=== PATIENT | male | born 1975 | race Caucasian/White ===

== ENCOUNTER 2024-07-20 23:30 | Emergency (ER) | payer MEDICAID, SELFPAY ==
--- NOTE | 2024-07-20 | ECG_ITS ---
Test Reason : FALL Blood Pressure : */* mmHG Vent. Rate : 80 BPM Atrial Rate : 80 BPM P-R Int : 198 ms QRS Dur : 78 ms QT Int : 360 ms P-R-T Axes : 58 71 72 degrees QTcB Int : 415 ms Normal sinus rhythm Normal ECG No previous ECGs available Referred By: Generic ED Physician Electronically Signed By: CORBY MORENO MD
--- NOTE | ~2024-07-20 | CT_ITS ---
CLINICAL HISTORY: fall CT head without contrast Comparison: None Findings: No intra-axial mass, midline shift, hydrocephalus, or acute hemorrhage. No significant atrophy-like change or white matter disease. Fluid level and mucosal thickening is in the left maxillary sinus. Mastoid air cells are clear. The orbits are unremarkable. No skull fracture. IMPRESSION: 1. No acute intracranial findings. This document has been electronically signed by: Rico Chamberlain MD, PHD on 07/21/2024 01:37:38
--- NOTE | ~2024-07-20 | XR_ITS ---
CLINICAL HISTORY: fall, pain 3 views lumbar spine Comparison: None Findings: There is mild straightening of the normal lumbar lordosis. No acute fractures or dislocation. Degenerative changes are present with disc height loss, endplate sclerosis and facet arthropathy in the inferior lumbar spine. IMPRESSION: No acute findings. This document has been electronically signed by: Rico Chamberlain MD, PHD on 07/21/2024 04:38:54
--- NOTE | ~2024-07-20 | CT_ITS ---
CLINICAL HISTORY: fall CT cervical spine without contrast Comparison: None Findings: There is straightening of the normal cervical lordosis. Mild multilevel degenerative changes are present. No acute fractures or dislocations. Visualized intracranial contents are unremarkable. No cervical fluid collections or masses. No consolidation or effusion at the lung apices. IMPRESSION: No acute findings. This document has been electronically signed by: Rico Chamberlain MD, PHD on 07/21/2024 01:36:06
[2024-07-20 23:35] VITALS: BP 130/74; BP 154/32; PULSE 78; PULSE 80; RESP 14; TEMP 36.2; O2SAT 96; BMI 29.8
[2024-07-20 23:37] VITALS: BP 130/74; PULSE 78; RESP 14; TEMP 36.2; O2SAT 96
--- NOTE | 2024-07-21 02:52 | ED_ITS ---
HPI - Fall General Chief Complaint: Fall Stated Complaint: ETOH Time Seen by Provider: 07/21/24 02:50 Source: patient and EMS Mode of arrival: EMS Limitations: no limitations History of Present Illness ED Provider: Dr. Argelia Wise HPI Narrative: Patient comes to the emergency room complaining of lower back pain. Patient states that he had been drinking earlier today. Patient states that he drank alcohol earlier today. Patient remembers that he was taking a shower, fell inside of his tub. Patient unsure if he hit his head or not. Patient reports pain in the lower back. Patient had his cell phone with him and was able to call 911. EMS help him out of the bathtub. According to EMS, patient received 100 mcg of fentanyl intranasal. Patient states that he is not sure if he uses any blood thinners. Related Data Allergies Allergy/AdvReac Type Severity Reaction Status Date / Time amoxicillin Allergy Rash Verified 07/20/24 23:45 Review of Systems 2 Review of Systems: Constitutional : No Weight loss, No Fever, No Chills, No Night Sweats, No Fatigue, No Malaise ENT/Mouth : No Hearing loss, No Ear Pain, No Nasal Congestion, No Sinus Pain, No Hoarseness, No sore throat, No Rhinorrhea, No Swallowing Difficulty Eyes: No Eye Pain, No Swelling, No Redness, No Foreign Body, No Discharge, No Vision Changes Cardiovascular : No Chest Pain, No SOB, No Dyspnea on Exertion, No Orthopnea, No Edema, No Palpitations Respiratory : No Cough, No Sputum, No Wheezing, No Smoke Exposure, No Dyspnea Gastrointestinal : No Nausea, No Vomiting, No Diarrhea, No Constipation, No abdominal Pain, No Hematochezia, No Melena Genitourinary : no irregular bleeding, No Dysuria, No Urinary Frequency, No Hematuria, No Urinary Incontinence, No Urgency, No Flank Pain, No Urinary Flow Changes, No Hesitancy Musculoskeletal : Complaining of back pain, No Myalgias, No Joint Swelling Skin : No Skin Lesions, No rash Neuro : No Weakness, No Numbness, No Paresthesias, No Loss of Consciousness, No Dizziness, No Headache Psych : No Anxiety/Panic, No Depression, No SI/HI/AH/VH, No Social Issues, Heme/Lymph: No Bruising, No Bleeding,No Lymphadenopathy Endocrine : No Polyuria, No Polydipsia, No Temperature Intolerance [facility] Social History Social History Alcohol intake: current Alcohol intake frequency: 0-2 drinks per day Alcohol type: beer Smoked in Last 30 Days: No Use of substances other than those prescribed or required for medical reasons: Yes Substance Use Type: Marijuana Advance Directives: No Advance Directives Information Provided: Yes Physical Exam 2 Vital Signs: Vital Signs: Last Vital Signs Temp 97.2 F 07/20/24 23:37 Pulse 78 07/20/24 23:37 Resp 14 07/20/24 23:37 BP 130/74 07/20/24 23:37 Pulse Ox 96 07/20/24 23:37 O2 Del Method Room Air 07/20/24 23:37 BMI result Body Mass Index 29.8 Const: Other: Appearance: Alert. Oriented X3. No acute distress. Eyes: Pupils equal, round and reactive to light. ENT: Pharynx normal. Neck: Normal inspection. Neck supple. No lymph nodes noted. No crepitus, normal range of motion, no palpable step-offs CVS: Normal heart rate and rhythm. Pulses normal. Normal S1 and S2 Respiratory: No respiratory distress. Breath sounds normal. No Wheezing. No rales Abdomen: Soft and nontender. No rigidity. No distention. Back: Pain to palpation in the lumbar area. Mostly over the paraspinal muscles bilaterally. No palpable step-offs Skin: Skin warm and dry. Normal skin color. Normal skin turgor. Extremities: No lower extremity edema. No Lacerations. No Rash Neuro: Oriented X 3. No motor deficit. No sensory deficit. Moving all extremities. No slurred speech. CN 2 through 12 grossly intact Psych: calm, cooperative, normal affect Medications Administered Discontinued Medications Generic Name Dose Route Start Last Admin Trade Name Freq PRN Reason Stop Dose Admin Tramadol HCl 50 mg 07/21/24 02:53 07/21/24 03:18 Tramadol Hcl 50 Mg Tablet PO 07/21/24 02:54 50 mg ONCE ONE Administration Medical Decision Making Medical Decision Making [facility] Narrative: My interpretation of head CT and cervical spine CT: No obvious abnormality. X-ray of the lumbar spine does not show any acute abnormality. My interpretation of labs: No significant abnormality in patient's hematology. Sodium 130, patient asymptomatic. Patient's troponin less than 2.7, normal LFT. ETOH 223 Plan: Metabolize to freedom and discharged home Differential Diagnosis Differential Diagnoses: The differential diagnosis associated with the presentation includes (Contusion, concussion, hip fracture versus dislocation versus contusion) Admission/Observation Consideration of admission/observation: Escalation of care including admission/observation considered (Patient is under physician observation waiting to become more sober) Lab Data MDM Lab Attestation statement: I reviewed the patient's lab results. 07/21/24 03:07 07/21/24 03:43 Labs: Lab Results 07/21/24 07/21/24 Range/Units 03:07 03:43 WBC 9.9 (4.8-10.8) X10*3/uL RBC 4.41 L (4.60-5.80) X10*6/uL Hgb 14.4 (14.0-18.0) g/dl Hct 39.4 L (42.0-52.0) % MCV 89.3 (80.0-98.0) fL MCH 32.7 (27.0-33.0) pg MCHC 36.5 H (31.0-36.0) g/dl RDW 11.7 (11.0-16.0) % Plt Count 311 (160-400) X10*3/uL MPV 8.4 L (9.4-12.4) fL Immature Gran % (Auto) 0.5 H (0.0-0.4) % Neut % (Auto) 60.7 (45-73) % Lymph % (Auto) 30.6 (20-40) % [place] % (Auto) 6.8 (2-11) % Eos % (Auto) 1.0 (0-4) % Baso % (Auto) 0.4 (0-2) % Lymph # (Auto) 3.0 (1.2-4.9) X10*3/uL [place] # (Auto) 0.7 (0.1-1.2) X10*3/uL Eos # (Auto) 0.1 (0.0-0.4) X10*3/uL Baso # (Auto) 0.0 (0.0-0.2) X10*3/uL Abs Immat Gran (auto) 0.05 H (0.00-0.03) X10*3/uL Absolute Neuts (auto) 6.0 (2.0-8.3) x10*3/uL Absolute Nucleated RBC 0.000 (0.0-0.012) X10*3/uL Nucleated RBC % (auto) 0.0 (0.0-0.2) /100WBC Sodium 130 L (135-145) mmol/L Potassium 4.4 (3.3-5.1) mmol/L Chloride 95 L (96-108) mmol/L Carbon Dioxide 22 (22-29) mmol/L Anion Gap 17 (12-20) BUN 12 (9-16) mg/dL Creatinine 0.86 (0.5-1.4) mg/dL Estim Creat Clear Calc 125.6 Estimated GFR > 60 Random Glucose 108 (60-115) mg/dL Calcium 9.1 (8.4-10.2) mg/dL Total Bilirubin 0.3 (0.0-1.0) mg/dL Direct Bilirubin 0.1 (0.0-0.5) mg/dL AST 35 (5-37) U/L ALT 29 (0-40) U/L Alkaline Phosphatase 71 (39-117) U/L Troponin I High Sens < 2.7 (<3.5-35.0) ng/L Total Protein 8.3 H (6.5-8.0) g/dL Albumin 4.7 (3.5-5.0) g/dL Ethyl Alcohol 223 mg/dL Independent Interpretation I performed an independent interpretation of an: CT Scan Radiology Impression Discussion of test interpretation with radiology: I have reviewed the radiologist's reading. Radiologist Impression: No intra-axial mass, midline shift, hydrocephalus, or acute hemorrhage. No significant atrophy-like change or white matter disease. Fluid level and mucosal thickening is in the left maxillary sinus. Mastoid air cells are clear. The orbits are unremarkable. No skull fracture. There is straightening of the normal cervical lordosis. Mild multilevel degenerative changes are present. No acute fractures or dislocations. Visualized intracranial contents are unremarkable. No cervical fluid collections or masses. No consolidation or effusion at the lung apices. Critical Care Time Critical Care Time Critical Care Time: Yes Total Critical Care Time: 45 Attestation: I have personally provided critical care time. Time includes review of lab data, radiology results, discussion with consultants, and monitoring for potential decompensation. Intervention performed as documented. Discharge Plan Discharge Clinical Impression: Alcohol abuse, Musculoskeletal pain Patient Disposition: Still a Patient Print Language: Yor[place]
[2024-07-21] MEDS: traMADoL HCL 50 MG TABLET PO (03:18)
[2024-07-21 03:23] LABS: Basophils Percent Auto 0.4 % (0-2); Eosinophils Absolute Auto 0.1 X10*3/uL (0.0-0.4); Hematocrit 39.4 % (42.0-52.0); Hemoglobin 14.4 g/dl (14.0-18.0); Imm Gran Abs Auto 0.05 X10*3/uL (0.00-0.03); Imm Gran Pct Auto 0.5 % (0.0-0.4); Lymphocytes Percent Auto 30.6 % (20-40); MANUAL DIFF FLAG NO; Mean Corpuscular HGB Conc 36.5 g/dl (31.0-36.0); Mean Corpuscular Hemoglobin 32.7 pg (27.0-33.0); Mean Corpuscular Volume 89.3 fL (80.0-98.0); Mean Platelet Volume 8.4 fL (9.4-12.4); Monocytes Absolute Auto 0.7 X10*3/uL (0.1-1.2); Monocytes Percent Auto 6.8 % (2-11); Neutrophils Percent Auto 60.7 % (45-73); PLT CLUMP 1; Red Blood Count 4.41 X10*6/uL (4.60-5.80); Red Cell Distribution Width 11.7 % (11.0-16.0); SCAN SMEAR FLAG 1; White Blood Count 9.9 X10*3/uL (4.8-10.8)
[2024-07-21 03:44] LABS: Platelet Count 311 X10*3/uL (160-400)
[2024-07-21 04:06] LABS: Alanine Aminotransferase 29 U/L (0-40); Albumin Level 4.7 g/dL (3.5-5.0); Anion Gap 17 (12-20); Aspartate Amino Transferase 35 U/L (5-37); Bilirubin Direct 0.1 mg/dL (0.0-0.5); Bilirubin Total 0.3 mg/dL (0.0-1.0); Blood Urea Nitrogen 12 mg/dL (9-16); Calcium 9.1 mg/dL (8.4-10.2); Carbon Dioxide 22 mmol/L (22-29); Chloride 95 mmol/L (96-108); Creatinine Clr Calc Pharmacy 125.6; Estimated Glomerular Filt Rate > 60; Ethanol 223 mg/dL; Glucose Random 108 mg/dL (60-115); Potassium 4.4 mmol/L (3.3-5.1); Sodium 130 mmol/L (135-145); Total Protein 8.3 g/dL (6.5-8.0)
[2024-07-21 04:10] LABS: Alkaline Phosphatase 71 U/L (39-117)
[2024-07-21 04:11] LABS: Troponin-I High Sensitivity < 2.7 ng/L (<3.5-35.0)
--- NOTE | 2024-07-21 06:00 | PC.NURSE ---
Pt awake, asking what hospital he is in. Pt ambulated to bathroom with staff stand by assist.
[2024-07-21 06:01] VITALS: BP 118/65; PULSE 91; RESP 18; TEMP 36.6; O2SAT 97
[2024-07-21 08:30] VITALS: BP 115/55; PULSE 98; RESP 18; TEMP 36.8; O2SAT 95
[2024-07-21 08:39] VITALS: BP 115/55; PULSE 98; RESP 18; TEMP 36.8; O2SAT 95
== END 2024-07-21 08:42 | disposition home or self-care (01) ==
PROVIDERS: Emergency Provider Emergency Medicine
DX: S39.92XA Unspecified injury of lower back, initial encounter (principal); M54.2 Cervicalgia; R51.9 Headache, unspecified; F10.10 Alcohol abuse, uncomplicated; Y90.7 Blood alcohol level of 200-239 mg/100 ml; X58.XXXA Exposure to other specified factors, initial encounter; Y93.9 Activity, unspecified; Y92.89 Other specified places as the place of occurrence of the external cause; Y99.8 Other external cause status; Z51.81 Encounter for therapeutic drug level monitoring; Z79.899 Other long term (current) drug therapy
CPT/HCPCS: 36415; 70450; 72100; 72125; 80048; 80076; 80307; 84484; 85025; 93005; 99284; 99285

== ENCOUNTER → 2024-07-20 23:48 | Outpatient (BNV) | payer MEDICAID, SELFPAY | PROVIDERS: Emergency Provider Emergency Medicine; Visit Provider Internal Medicine Cardiovascular Disease | DX: F10.10 Alcohol abuse, uncomplicated (principal); R29.91 Unspecified symptoms and signs involving the musculoskeletal system; W18.2XXA Fall in (into) shower or empty bathtub, initial encounter | CPT/HCPCS: 93010 ==

== ENCOUNTER → 2024-07-21 | Outpatient (BNV) | payer MEDICAID, SELFPAY | PROVIDERS: Visit Provider General Practice | DX: M54.2 Cervicalgia (principal); W19.XXXA Unspecified fall, initial encounter; M51.360 Other intervertebral disc degeneration, lumbar region with discogenic back pain only | CPT/HCPCS: 70450; 72100; 72125 ==